=== PATIENT | male | born 1990 | race Caucasian/White ===

== ENCOUNTER 2025-06-23 05:15 | Emergency (ER) | payer BC ==
[~2025-06-23] VITALS: Ht 182.9 cm; Wt 95.3 kg
[2025-06-23] MEDS ORDERED: FAMO10TA41 PO (05:31)
[2025-06-23] MEDS: IV NORMAL SALINE 1000 ML BAG IV ONE (06:00)
[2025-06-23] MEDS: ONDANSETRON 4 MG/2 ML VIAL IV ONE (06:00)
[2025-06-23 06:10] LABS: PLATELET COUNT (AUTO) 211 K/uL (152-348); RED BLOOD CELL COUNT(AUTO) 5.34 MIL/uL (4.06-5.63); RED CELL DISTRIBUTION WIDTH 12.7 % (12.1-16.2); WHITE BLOOD COUNT (AUTO) 12.5 K/uL (3.6-10.2)
[2025-06-23 06:13] LABS: *BILIRUBIN,URIN NEGATIVE (NEGATIVE); *BLOOD, URINE 1+ (NEGATIVE); *CLARITY,URINE CLEAR (CLEAR); *COLOR,URINE YELLOW (YELLOW); *KETONES,URINE NEGATIVE (NEGATIVE); *PROTEIN,URINE NEGATIVE (NEGATIVE); *UROBILINOGEN,URINE 0.2 E.U./dl (NORMAL); LEUKOCYTE ESTERASE ,URINE NEGATIVE (NEGATIVE); NITRITE, URINE NEGATIVE (NEGATIVE); UGLUCOSE NEGATIVE (NEGATIVE)
[2025-06-23 06:26] LABS: CREATININE 1.0 mg/dL (0.6-1.3); SODIUM SERUM 140.0 mmol/L (136-145); UREA NITROGEN, BLOOD 13.0 mg/dL (7-18)
[2025-06-23 06:31] LABS: ASPARTATE AMINOTRANSFERASE 19.0 U/L (15-37); TOTAL PROTEIN, SERUM 8.7 g/dL (6.4-8.2)
[2025-06-23] MEDS ORDERED: ONDA4TAB11 PO (06:37)
[2025-06-23 06:41] LABS: SQUAMOUS EPITHELIAL CELL,UR FEW /HPF (NONE SEEN)
[2025-06-23 06:50] VITALS: BP 133/75; O2SAT 99
== END 2025-06-23 06:49 | disposition home or self-care (01) ==
LOC: ER 05:26
DX: K52.9 Noninfective gastroenteritis and colitis, unspecified (principal); F41.9 Anxiety disorder, unspecified; K21.9 Gastro-esophageal reflux disease without esophagitis; M54.50 Low back pain, unspecified; R03.0 Elevated blood-pressure reading, without diagnosis of hypertension; F41.0 Panic disorder [episodic paroxysmal anxiety]
CPT/HCPCS: 99283; 96374; 80076; 80048; 81001; 83690; 85025; 36415; J2405; J7040; A4606; A4663